=== PATIENT | female | born 1995 | race Caucasian/White ===

== ENCOUNTER 2020-01-19 11:36 | Emergency (ER) | payer OTHER ==
--- NOTE | 2020-01-19 12:10 | ER Document Report ---
ED Medical Screen (RME) - General Chief Complaint: Dizziness Stated Complaint: ABDOMINAL PAIN,VAGINAL BLEEDING Time Seen by Provider: 01/19/20 12:04 - HPI Notes: Patient is a 22-year-old female with no medical history who presents with abdominal cramping and spotting that began 2 days ago.. She took a test 2 days ago which was positive. She has not been seen by OB or had any further testing for this . She denies any heavy vaginal bleeding or passing clots. She also reports a foul odor to her urine but denies dysuria. She also reports dizziness and nausea but no denies any chest pain, shortness of breath, and fever. Her last menstrual period was December 08, 2019. G1, P0. - Related Data Allergies/Adverse Reactions: nut - unspecified Allergy (Verified 01/19/20 11:51) Past Medical History - Social History Chew tobacco use (# tins/day): No Frequency of alcohol use: None Drug Abuse: None Physical Exam - Vital signs Vitals: Temp Pulse Resp BP Pulse Ox 98.3 F 80 16 109/46 L 97 01/19/20 11:51 01/19/20 11:51 01/19/20 11:51 01/19/20 11:51 01/19/20 11:51 - Abdominal Bowel sounds: Normal Tenderness: Nontender Course - Re-evaluation Re-evalutation: I have greeted and performed a rapid initial assessment of this patient. A comprehensive ED assessment and evaluation of the patient, analysis of test results and completion of medical decision making process will be conducted by an additional ED providers. - Vital Signs Vital signs: Temp Pulse Resp BP Pulse Ox 98.3 F 80 16 109/46 L 97 01/19/20 11:51 01/19/20 11:51 01/19/20 11:51 01/19/20 11:51 01/19/20 11:51
[2020-01-19 12:29] LABS: ABSOLUTE EOSINOPHILS # (AUTO) 0.2 10^3/uL (0.0-0.6); ABSOLUTE LYMPHOCYTES (AUTO) 2.1 10^3/uL (0.5-4.7); ABSOLUTE MONOCYTES (AUTO) 0.6 10^3/uL (0.1-1.4); ABSOLUTE NEUT (AUTO) 4.3 10^3/uL (1.7-8.2); BASOPHILS % (AUTO) 0.6 % (0-2); EOSINOPHILS % (AUTO) 2.9 % (0-6); HEMATOCRIT 38.4 % (36.0-47.0); HEMOGLOBIN 12.7 g/dL (12.0-15.5); LYMPHOCYTES % (AUTO) 28.8 % (13-45); MEAN CORPUSCULAR HEMOGLOBIN 30.8 pg (27.0-33.4); MEAN CORPUSCULAR HGB CONC 33.2 g/dL (32.0-36.0); MEAN CORPUSCULAR VOLUME 93 fl (80-97); MONOCYTES % (AUTO) 7.9 % (3-13); PLATELET COUNT 286 10^3/uL (150-450); RED BLOOD COUNT 4.14 10^6/uL (3.72-5.28); RED CELL DISTRIBUTION WIDTH 12.8 % (11.5-14.0); SEGMENTED NEUTROPHILS % (AUTO) 59.8 % (42-78); TOTAL CELLS COUNTED % (AUTO) 100 %; WHITE BLOOD COUNT 7.2 10^3/uL (4.0-10.5)
[2020-01-19 12:36] LABS: APPEARANCE,URINE SLIGHTLY-CLOUDY; BILIRUBIN,URINE NEGATIVE (NEGATIVE); COLOR,URINE YELLOW; GLUCOSE, URINE NEGATIVE (NEGATIVE); KETONES,URINE NEGATIVE (NEGATIVE); LEUKOCYTE ESTERASE,URINE SMALL (NEGATIVE); NITRITE,URINE POSITIVE (NEGATIVE); PROTEIN,URINE NEGATIVE (NEGATIVE); URINE SPECIFIC GRAVITY 1.013; UROBILINOGEN,URINE NEGATIVE mg/dL (<2.0)
[2020-01-19 12:49] LABS: ALBUMIN 4.1 g/dL (3.5-5.0); ALKALINE PHOSPHATASE 48 U/L (38-126); ANION GAP 5 (5-19); ASPARTATE AMINO TRANSFERASE 19 U/L (14-36); BILIRUBIN,TOTAL 0.4 mg/dL (0.2-1.3); BLOOD UREA NITROGEN 9 mg/dL (7-20); CALCIUM 9.7 mg/dL (8.4-10.2); CARBON DIOXIDE 25 mmol/L (22-30); CHLORIDE 106 mmol/L (98-107); GLUCOSE 98 mg/dL (75-110); POTASSIUM 4.4 mmol/L (3.6-5.0); TOTAL PROTEIN 7.2 g/dL (6.3-8.2)
--- NOTE | 2020-01-19 13:04 | RADIOLOGY REPORT (SQ) ---
EXAM DESCRIPTION: U/S OB TRANSVAGINAL W/O DOP IMAGES COMPLETED DATE/TIME: 01/19/2020 12:47 pm REASON FOR STUDY: abdominal cramping COMPARISON: None. TECHNIQUE: Transvaginal static and realtime grayscale images acquired of the pelvis. Additional boaz cted spectral and color Doppler images recorded. All images stored on PACs. bHCG: Pending. CLINICAL DATES: LMP 12/08/2019 6 weeks 0 days LIMITATIONS: None. FINDINGS: FETUS: pole is not yet seen. . ULTRASOUND EGA: 5 weeks 2 days by gestational sac size. ULTRASOUND MUNIRA: 09/18/2020 EFW: Not applicable less than 20 weeks. pole is not yet seen. No heart motion. AMNIOTIC FLUID: Adequate amount. PLACENTA: Not yet developed due to early gestation. SUBCHORIONIC BLEED: No SIZE OF BLEED: Not applicable. UTERUS: No masses. No anomalies. CERVICAL LENGTH: 2.4 cm. Closed. RIGHT ADNEXA: Normal ovary with normal vascular flow. 3.2 x 2.4 x 2.5 cm. No adnexal free fluid. No adnexal masses. LEFT ADNEXA: Normal ovary with normal vascular flow. 2.9 x 1.9 x 2.1 cm. No adnexal free fluid. No adnexal masses. FREE FLUID: None. OTHER: No other significant finding. IMPRESSION: Intrauterine gestational sac suggesting a gestation of 5 weeks 2 days. pole is no t yet seen. Follow-up as clinically indicated. TECHNICAL DOCUMENTATION: JOB ID: [id number] 2010 [facility]- All Rights Reserved Reading location - IP/workstation name: [email or web address]
--- NOTE | 2020-01-19 13:42 | ER Document Report ---
ED Dizziness/Weakness - General Chief Complaint: Dizziness Stated Complaint: ABDOMINAL PAIN,VAGINAL BLEEDING Time Seen by Provider: 01/19/20 12:04 Mode of Arrival: Ambulatory Information source: Patient - HPI Notes: Patient states she has been having some lower abdominal cramping some dizziness with exertion as well as some vaginal spotting for the last several days. She also has had some foul-smelling urine. Patient states she took a home test and it came back positive so she was concerned and came to the emergency department. She states she has never been before. - Related Data Allergies/Adverse Reactions: nut - unspecified Allergy (Verified 01/19/20 11:51) Past Medical History - General Information source: Patient - Social History Smoking Status: Former Smoker Chew tobacco use (# tins/day): No Frequency of alcohol use: None Drug Abuse: None Family History: Reviewed & Not Pertinent Review of Systems - Review of Systems Constitutional: denies: Chills, Fever Cardiovascular: denies: Chest pain, Palpitations Respiratory: denies: Cough, Short of breath -: Yes All other systems reviewed and negative Physical Exam - Vital signs Vitals: Temp Pulse Resp BP Pulse Ox 98.3 F 80 16 109/46 L 97 01/19/20 11:51 01/19/20 11:51 01/19/20 11:51 01/19/20 11:51 01/19/20 11:51 Interpretation: Normal - General General appearance: Appears well, Alert - HEENT Head: Normocephalic, Atraumatic Eyes: Normal Pupils: PERRL - Respiratory Respiratory status: No respiratory distress Chest status: Nontender Breath sounds: Normal Chest palpation: Normal - Cardiovascular Rhythm: Regular Heart sounds: Normal auscultation Murmur: No - Abdominal Inspection: Normal Distension: No distension Bowel sounds: Normal Tenderness: Nontender Organomegaly: No organomegaly - Back Back: Normal, Nontender - Extremities General upper extremity: Normal inspection, Nontender, Normal color, Normal ROM, Normal temperature General lower extremity: Normal inspection, Nontender, Normal color, Normal ROM, Normal temperature, Normal weight bearing. No: Michael's sign - Neurological Neuro grossly intact: Yes Cognition: Normal Orientation: AAOx4 [place] Coma Scale Eye Opening: Spontaneous [place] Coma Scale Verbal: Oriented Ren Coma Scale Motor: Obeys Commands [place] Coma Scale Total: 15 Speech: Normal Motor strength normal: LUE, RUE, LLE, RLE Sensory: Normal - Psychological Associated symptoms: Normal affect, Normal mood - Skin Skin Temperature: Warm Skin Moisture: Dry Skin Color: Normal Course - Re-evaluation Re-evalutation: 01/19/20 13:40 Patient presents with vaginal spotting abdominal cramping. She has a positive test. No evidence of ectopic. She appears to have a normal developing intrauterine of 5 weeks and 2 days. She has an equivocal urine given the fact that she is this will be treated with antibiotics. - Vital Signs Vital signs: Temp Pulse Resp BP Pulse Ox 98.3 F 80 16 109/46 L 97 01/19/20 11:51 01/19/20 11:51 01/19/20 11:51 01/19/20 11:51 01/19/20 11:51 - Laboratory Result Diagrams: 01/19/20 12:10 01/19/20 12:10 Laboratory results interpreted by me: 01/19/20 01/19/20 12:10 12:10 Sodium 136.4 L Beta HCG, Quant 1936.80 H Urine Nitrite POSITIVE H Ur Leukocyte Esterase SMALL H - Diagnostic Test Radiology reviewed: Image reviewed, Reports reviewed Discharge - Discharge Clinical Impression: Antepartum asymptomatic bacteriuria in first trimester, Abdominal pain during intrauterine Condition: Stable Disposition: HOME, SELF-CARE Instructions: Bleeding During Early ([facility]), Pelvic Pain in ([facility]), Pelvic Pain in and Round Ligament Pain ([facility]), ([facility]) Prescriptions: Nitrofurantoin Monohyd/M-Cryst [Macrobid 100 mg Capsule] 100 mg PO BID 7 Days #14 cap Referrals: CHRISTINA ASHBY MD [ACTIVE STAFF] - Follow up as needed
[2020-01-19 14:00] VITALS: BP 107/62
== END 2020-01-19 13:55 | disposition home or self-care (01) ==
LOC: ER 11:36
DX: O28.8 Other abnormal findings on antenatal screening of mother (principal); O26.891 Other specified pregnancy related conditions, first trimester; R42 Dizziness and giddiness; R10.9 Unspecified abdominal pain; R10.30 Lower abdominal pain, unspecified; Z3A.01 Less than 8 weeks gestation of pregnancy; Z87.891 Personal history of nicotine dependence
CPT/HCPCS: 36415; 76817; 80053; 81001; 84702; 85025; 86900; 86901; 87086; 87088; 87186; 99284